=== PATIENT | male | born 1990 | race Asian ===

== ENCOUNTER 2023-07-20 01:18 | Emergency (ER) | payer OTHER, BC ==
[~2023-07-20] VITALS: Ht 165.1 cm; Wt 68.0 kg
[2023-07-20 01:22] VITALS: BP 123/85; PULSE 107; RESP 18; TEMP 97.5; O2SAT 99
== END 2023-07-20 01:55 ==
LOC: MED 01:18
DX: Z02.89 Encounter for other administrative examinations (principal); V49.88XA Car occupant (driver) (passenger) injured in other specified transport accidents, initial encounter; Y93.89 Activity, other specified; Y92.89 Other specified places as the place of occurrence of the external cause; Y99.8 Other external cause status
CPT/HCPCS: 99283